=== PATIENT | female | born 1990 | race African-American/Black ===

== ENCOUNTER 2017-11-03 09:41 | Emergency (ER) | payer MEDICAID ==
[~2017-11-03] VITALS: Ht 162.6 cm; Wt 80.0 kg
[2017-11-03] MEDS ORDERED: METR500T PO (09:49)
[2017-11-03] MEDS ORDERED: DOXY150T PO (09:49)
[2017-11-03 10:43] LABS: BASOPHILS % 0.4 % (0.0-2.0); EOSINOPHILS % 0.7 % (0.0-5.0); HEMATOCRIT. 39.9 % (36.0-48.0); HEMOGLOBIN. 13.7 g/dL (12.0-16.0); LYMPHOCYTES % 20.5 % (20.0-50.0); MEAN CORPUSCULAR HEMOGLOBIN 30.2 pg (28.0-32.0); MEAN CORPUSCULAR VOLUME 87.9 fL (81.0-99.0); MEAN PLATELET VOLUME 7.7 fl (7.4-10.4); NEUTROPHILS % 73.4 % (40.0-76.0); PLATELET 314 x1000/uL (130-400); RED BLOOD CELL COUNT 4.54 mill/uL (4.2-5.4); RED CELL DISTRIBUTION WIDTH 13.9 % (11.6-14.6)
[2017-11-03 10:50] LABS: CHLORIDE 105 mEq/L (98-107)
[2017-11-03 10:54] LABS: ETHANOL BLOOD < 10 mg/dL
[2017-11-03 10:56] LABS: CLARITY URINE CLEAR (CLEAR); COLOR URINE YELLOW (YELLOW); KETONES URINE NEGATIVE (NEGATIVE); LEUKOCYTE ESTERASE URINE 3+ (NEGATIVE); NITRITE URINE NEGATIVE (NEGATIVE); OCCULT BLOOD URINE NEGATIVE (NEGATIVE); PROTEIN URINE NEGATIVE (NEGATIVE); SPECIFIC GRAVITY URINE 1.016 (1.005-1.030); UROBILINOGEN URINE 0.2 E.U./dL (0.2-1.0)
[2017-11-03 11:11] LABS: *AMPHETAMINES SCREEN URINE NEGATIVE (NEGATIVE); *BARBITURATES SCREEN URINE NEGATIVE (NEGATIVE); *BENZODIAZEPINES SCREEN URINE NEGATIVE (NEGATIVE); *COCAINE SCREEN URINE NEGATIVE (NEGATIVE); METHADONE URINE SCREEN NEGATIVE (NEGATIVE)
[2017-11-03 11:13] LABS: CANNABINOID URINE SCREEN NEGATIVE (NEGATIVE); OPIATES URINE SCREEN NEGATIVE (NEGATIVE); PHENCYCLIDINE URINE SCREEN NEGATIVE (NEGATIVE)
[2017-11-03] MEDS ORDERED: LEVETIRACETAM 1000MG/100ML 100 ML IV ONE (11:15)
[2017-11-03] MEDS ORDERED: KETOROLAC 30MG/ML VIAL IV ONE (12:00)
[2017-11-03 12:39] VITALS: BP 127/52
== END 2017-11-03 12:40 | disposition home or self-care (01) ==
LOC: ER 09:41
DX: G40.409 Other generalized epilepsy and epileptic syndromes, not intractable, without status epilepticus (principal); N39.0 Urinary tract infection, site not specified
CPT/HCPCS: 36415; 70450; 80053; 80305; 81003; 81025; 85025; 96365; 96375; 99285; G0482; J1885; J1953; Z7610

== ENCOUNTER 2018-02-15 06:28 | Emergency (ER) | payer MEDICAID ==
[~2018-02-15] VITALS: Ht 175.3 cm; Wt 82.0 kg
[~2018-02-15 06:28] MED LIST: DOXY150T PO; METR500T PO
[2018-02-15] MEDS ORDERED: KETOROLAC 30MG/ML VIAL IV STA (06:56)
[2018-02-15] MEDS ORDERED: LEVETIRACETAM 1000MG/100ML 100 ML IV ONE (07:00)
[2018-02-15] MEDS ORDERED: METOCLOPRAMIDE HCL 10MG/2ML VIAL IV ONE (07:00)
[2018-02-15 07:32] LABS: BASOPHILS % 0.4 % (0.0-2.0); EOSINOPHILS % 1.1 % (0.0-5.0); HEMATOCRIT. 40.2 % (36.0-48.0); HEMOGLOBIN. 13.7 g/dL (12.0-16.0); LYMPHOCYTES % 24.6 % (20.0-50.0); MEAN CORPUSCULAR HEMOGLOBIN 30.9 pg (28.0-32.0); MEAN CORPUSCULAR VOLUME 90.8 fL (81.0-99.0); MEAN PLATELET VOLUME 8.4 fl (7.4-10.4); MONOCYTES % 6.2 % (2.0-8.0); NEUTROPHILS % 67.7 % (40.0-76.0); PLATELET 325 x1000/uL (130-400); RED BLOOD CELL COUNT 4.43 mill/uL (4.2-5.4); RED CELL DISTRIBUTION WIDTH 12.7 % (11.6-14.6)
[2018-02-15 07:48] LABS: CHLORIDE 107 mEq/L (98-107)
[2018-02-15 09:05] VITALS: BP 97/52
== END 2018-02-15 09:19 | disposition home or self-care (01) ==
LOC: ER 06:46
DX: R56.9 Unspecified convulsions (principal); R53.1 Weakness; R51 Headache; Z79.899 Other long term (current) drug therapy
CPT/HCPCS: 36415; 80053; 81025; 85025; 96365; 96375; 99284; J1885; J1953; J2765

== ENCOUNTER 2018-10-07 06:09 | Emergency (ER) | payer MEDICAID ==
[~2018-10-07] VITALS: Ht 170.2 cm; Wt 100.0 kg
[2018-10-07] MEDS ORDERED: SODIUM CHLORIDE 0.9% 1,000 ML IV ONE (06:36)
[2018-10-07 07:22] LABS: CLARITY URINE CLEAR (CLEAR); COLOR URINE YELLOW (YELLOW); KETONES URINE NEGATIVE (NEGATIVE); LEUKOCYTE ESTERASE URINE NEGATIVE (NEGATIVE); NITRITE URINE NEGATIVE (NEGATIVE); OCCULT BLOOD URINE NEGATIVE (NEGATIVE); PH URINE 6.5 (4.5-8.0); PROTEIN URINE TRACE (NEGATIVE); SPECIFIC GRAVITY URINE 1.019 (1.005-1.030); UROBILINOGEN URINE 0.2 E.U./dL (0.2-1.0)
[2018-10-07 08:50] LABS: BASOPHILS % 0.3 % (0.0-2.0); EOSINOPHILS % 0.1 % (0.0-5.0); HEMATOCRIT. 38.6 % (36.0-48.0); HEMOGLOBIN. 13.1 g/dL (12.0-16.0); LYMPHOCYTES % 9.1 % (20.0-50.0); MEAN CORPUSCULAR HEMOGLOBIN 30.9 pg (28.0-32.0); MEAN PLATELET VOLUME 7.7 fl (7.4-10.4); MONOCYTES % 3.6 % (2.0-8.0); NEUTROPHILS % 86.9 % (40.0-76.0); PLATELET 313 x1000/uL (130-400); RED BLOOD CELL COUNT 4.24 mill/uL (4.2-5.4); RED CELL DISTRIBUTION WIDTH 13.2 % (11.6-14.6)
[2018-10-07 08:55] LABS: CHLORIDE 106 mEq/L (98-107)
[2018-10-07 09:27] LABS: B-HCG QUANTITATIVE 63726 mIU/mL (<3)
[2018-10-07 09:51] VITALS: BP 101/55
== END 2018-10-07 10:27 | disposition home or self-care (01) ==
LOC: ER 06:09
DX: O99.351 Diseases of the nervous system complicating pregnancy, first trimester (principal); G40.909 Epilepsy, unspecified, not intractable, without status epilepticus; Z79.899 Other long term (current) drug therapy; Z3A.01 Less than 8 weeks gestation of pregnancy
CPT/HCPCS: 36415; 76801; 76817; 80053; 81003; 81025; 84702; 85025; 99284; J7030; Z7610

== ENCOUNTER 2018-12-13 16:57 | Emergency (ER) | payer MEDICAID ==
[~2018-12-13] VITALS: Ht 157.5 cm; Wt 76.0 kg
[2018-12-13 18:44] LABS: CLARITY URINE CLOUDY (CLEAR); COLOR URINE YELLOW (YELLOW); KETONES URINE 2+ (NEGATIVE); LEUKOCYTE ESTERASE URINE 3+ (NEGATIVE); NITRITE URINE NEGATIVE (NEGATIVE); OCCULT BLOOD URINE NEGATIVE (NEGATIVE); PROTEIN URINE NEGATIVE (NEGATIVE); SPECIFIC GRAVITY URINE 1.013 (1.005-1.030); UROBILINOGEN URINE 0.2 E.U./dL (0.2-1.0)
[2018-12-13] MEDS ORDERED: NITROFURANTOIN 100MG M/M CAPSULE PO ONE (20:15)
[2018-12-13 21:17] VITALS: BP 110/75
== END 2018-12-13 21:18 | disposition home or self-care (01) ==
LOC: ER 16:57
DX: O26.891 Other specified pregnancy related conditions, first trimester (principal); O02.1 Missed abortion; O23.41 Unspecified infection of urinary tract in pregnancy, first trimester; Z3A.14 14 weeks gestation of pregnancy
CPT/HCPCS: 76805; 81025; 99284

== ENCOUNTER 2019-06-11 11:27 | Emergency (ER) | payer MEDICAID ==
[~2019-06-11] VITALS: Ht 170.2 cm; Wt 68.0 kg
[~2019-06-11 11:27] MED LIST changes: -DOXY150T PO; +DOXY150T5 PO
[2019-06-11] MEDS ORDERED: SODIUM CHLORIDE 0.9% 1,000 ML IV ONE (11:55)
[2019-06-11] MEDS: ACETAMINOPHEN 325MG TABLET PO PRN ×2 (12:15→13:45)
[2019-06-11] MEDS ORDERED: ONDANSETRON HCL 4MG/2ML INJ IV ONE (12:30)
[2019-06-11 12:41] LABS: BASOPHILS % 0.4 % (0.0-2.0); EOSINOPHILS % 0.2 % (0.0-5.0); HEMATOCRIT. 36.6 % (36.0-48.0); HEMOGLOBIN. 12.6 g/dL (12.0-16.0); LYMPHOCYTES % 16.4 % (20.0-50.0); MEAN CORPUSCULAR VOLUME 87.2 fL (81.0-99.0); MEAN PLATELET VOLUME 8.1 fl (7.4-10.4); MONOCYTES % 4.9 % (2.0-8.0); NEUTROPHILS % 78.1 % (40.0-76.0); PLATELET 293 x1000/uL (130-400); RED CELL DISTRIBUTION WIDTH 14.9 % (11.6-14.6)
[2019-06-11 12:51] LABS: CHLORIDE 106 mEq/L (98-107)
[2019-06-11 12:59] LABS: ETHANOL BLOOD < 10 mg/dL
[2019-06-11 13:09] LABS: CLARITY URINE CLEAR (CLEAR); COLOR URINE YELLOW (YELLOW); KETONES URINE NEGATIVE (NEGATIVE); LEUKOCYTE ESTERASE URINE NEGATIVE (NEGATIVE); NITRITE URINE NEGATIVE (NEGATIVE); OCCULT BLOOD URINE NEGATIVE (NEGATIVE); PH URINE 5.5 (4.5-8.0); PROTEIN URINE 1+ (NEGATIVE); SPECIFIC GRAVITY URINE 1.016 (1.005-1.030); UROBILINOGEN URINE 0.2 E.U./dL (0.2-1.0)
[2019-06-11 13:29] LABS: B-HCG QUANTITATIVE 15198 mIU/mL (<3)
[2019-06-11 13:44] LABS: *AMPHETAMINES SCREEN URINE NEGATIVE (NEGATIVE); *BARBITURATES SCREEN URINE NEGATIVE (NEGATIVE); *BENZODIAZEPINES SCREEN URINE NEGATIVE (NEGATIVE); *COCAINE SCREEN URINE NEGATIVE (NEGATIVE)
[2019-06-11 13:46] LABS: CANNABINOID URINE SCREEN NEGATIVE (NEGATIVE); METHADONE URINE SCREEN NEGATIVE (NEGATIVE); OPIATES URINE SCREEN NEGATIVE (NEGATIVE); PHENCYCLIDINE URINE SCREEN NEGATIVE (NEGATIVE)
[2019-06-11 15:43] VITALS: BP 130/71
== END 2019-06-11 15:50 | disposition home or self-care (01) ==
LOC: ER 11:56
DX: O26.892 Other specified pregnancy related conditions, second trimester (principal); G40.909 Epilepsy, unspecified, not intractable, without status epilepticus; O23.41 Unspecified infection of urinary tract in pregnancy, first trimester; Z3A.16 16 weeks gestation of pregnancy
CPT/HCPCS: 36415; 76805; 80053; 80305; 80320; 81003; 84702; 85025; 96374; 99284; J2405; J7030; G0480

== ENCOUNTER 2020-03-09 15:18 | Emergency (ER) | payer MEDICAID ==
[~2020-03-09] VITALS: Ht 167.6 cm; Wt 90.0 kg
[2020-03-09] MEDS ORDERED: SODIUM CHLORIDE 0.9% 1,000 ML IV ONE (15:45)
[2020-03-09] MEDS ORDERED: LEVETIRACETAM 500MG PREMIX 100 ML IV ONE ×2 (16:15)
[2020-03-09 17:04] LABS: BASOPHILS % 0.3 % (0.0-2.0); EOSINOPHILS % 1.1 % (0.0-5.0); HEMATOCRIT. 40.6 % (36.0-48.0); HEMOGLOBIN. 13.9 g/dL (12.0-16.0); LYMPHOCYTES % 22.5 % (20.0-50.0); MEAN CORPUSCULAR HEMOGLOBIN 30.4 pg (28.0-32.0); MEAN CORPUSCULAR VOLUME 88.7 fL (81.0-99.0); MEAN PLATELET VOLUME 7.8 fl (7.4-10.4); MONOCYTES % 5.1 % (2.0-8.0); PLATELET 327 x1000/uL (130-400); RED BLOOD CELL COUNT 4.58 mill/uL (4.2-5.4); RED CELL DISTRIBUTION WIDTH 13.1 % (11.6-14.6)
[2020-03-09 17:09] LABS: CHLORIDE 107 mEq/L (98-107)
[2020-03-09 17:14] LABS: ETHANOL BLOOD < 10 mg/dL
[2020-03-09 17:26] LABS: CARBAMAZEPINE < 0.5 ug/mL (4-12); VALPROIC ACID < 3.0 ug/mL (50-100)
[2020-03-09 17:32] LABS: HCG SCREEN NEGATIVE
[2020-03-09 18:27] VITALS: BP 127/69
[2020-03-09 19:20] LABS: CLARITY URINE CLEAR (CLEAR); COLOR URINE YELLOW (YELLOW); KETONES URINE NEGATIVE (NEGATIVE); LEUKOCYTE ESTERASE URINE TRACE (NEGATIVE); NITRITE URINE NEGATIVE (NEGATIVE); OCCULT BLOOD URINE NEGATIVE (NEGATIVE); PH URINE 7.5 (4.5-8.0); PROTEIN URINE NEGATIVE (NEGATIVE); SPECIFIC GRAVITY URINE 1.014 (1.005-1.030); UROBILINOGEN URINE 0.2 E.U./dL (0.2-1.0)
[2020-03-09 19:27] LABS: *AMPHETAMINES SCREEN URINE NEGATIVE (NEGATIVE); *BARBITURATES SCREEN URINE NEGATIVE (NEGATIVE); *BENZODIAZEPINES SCREEN URINE NEGATIVE (NEGATIVE); *COCAINE SCREEN URINE NEGATIVE (NEGATIVE); CANNABINOID URINE SCREEN NEGATIVE (NEGATIVE); METHADONE URINE SCREEN NEGATIVE (NEGATIVE); OPIATES URINE SCREEN NEGATIVE (NEGATIVE); PHENCYCLIDINE URINE SCREEN NEGATIVE (NEGATIVE)
== END 2020-03-09 19:53 | disposition home or self-care (01) ==
LOC: ER 15:27
DX: S09.8XXA Other specified injuries of head, initial encounter (principal); R56.9 Unspecified convulsions; W06.XXXA Fall from bed, initial encounter; Y93.89 Activity, other specified; Y92.89 Other specified places as the place of occurrence of the external cause; Y99.8 Other external cause status
CPT/HCPCS: 36415; 70450; 80053; 80156; 80165; 80305; 80320; 81003; 83605; 84484; 84703; 85025; 86850; 86900; 86901; 93005; 96365; 99285; J1953; J7030; G0480

== ENCOUNTER 2023-12-11 16:09 | Emergency (ER) | payer MEDICAID ==
[~2023-12-11] VITALS: Ht 165.1 cm; Wt 75.0 kg
[2023-12-11 16:17] VITALS: O2SAT 99
[2023-12-11 17:58] LABS: BASOPHILS % 0.3 % (0.0-2.0); EOSINOPHILS % 0.4 % (0.0-5.0); HEMOGLOBIN. 13.3 g/dL (12.0-16.0); LYMPHOCYTES % 10.9 % (20.0-50.0); MEAN CORPUSCULAR HEMOGLOBIN 30.6 pg (28.0-32.0); MEAN CORPUSCULAR HGB CONC 33.4 g/dL (31.0-37.0); MEAN CORPUSCULAR VOLUME 91.5 fL (81.0-99.0); MEAN PLATELET VOLUME 7.9 fl (7.4-10.4); MONOCYTES % 5.2 % (2.0-8.0); NEUTROPHILS % 83.2 % (40.0-76.0); PLATELET 354 x1000/uL (130-400); RED BLOOD CELL COUNT 4.37 mill/uL (4.2-5.4); RED CELL DISTRIBUTION WIDTH 13.1 % (11.6-14.6); WHITE BLOOD COUNT 12.7 x1000/uL (4.5-11.0)
[2023-12-11 18:03] LABS: CHLORIDE 105 mEq/L (98-107); POTASSIUM 4.4 mEq/L (3.5-5.1); SODIUM 136 mEq/L (136-145)
[2023-12-11 18:04] LABS: CALCIUM 9.3 mg/dL (8.7-10.4); CARBON DIOXIDE 25 mEq/L (21-32)
[2023-12-11 18:09] LABS: CREATININE 0.7 mg/dL (0.6-1.0); GLUCOSE 102 mg/dL (70-105); HCG SCREEN NEGATIVE; UREA NITROGEN BLOOD 6 mg/dL (9-23)
[2023-12-11 18:11] LABS: ALANINE AMINOTRANSFERASE 32 IU/L (10-49); ALBUMIN 4.5 g/dL (3.2-4.8); ASPARTATE AMINOTRANSFERASE 25 IU/L (<34); BILIRUBIN TOTAL 0.4 mg/dL (0.1-1.0)
[2023-12-11 18:12] LABS: PROTEIN TOTAL 7.3 g/dL (6.0-8.3)
[2023-12-11] MEDS: LEVETIRACETAM 500MG PREMIX 100 ML IV ONE (18:17)
[2023-12-11] MEDS: SODIUM CHLORIDE 0.9% 1,000 ML IV ONE (18:18)
[2023-12-11 18:27] VITALS: TEMP 98.2
[2023-12-11] MEDS ORDERED: KEPP500 MT (20:53)
[2023-12-11 21:50] VITALS: BP 126/86; PULSE 68; RESP 12
== END 2023-12-11 21:52 | disposition home or self-care (01) ==
LOC: ER 16:09
DX: G40.909 Epilepsy, unspecified, not intractable, without status epilepticus (principal); J45.909 Unspecified asthma, uncomplicated
CPT/HCPCS: 99284; 96365; 80053; 84703; 85025; 36415; 93005; J1953; J7030

== ENCOUNTER 2024-06-04 19:12 | Emergency (ER) | payer MEDICAID ==
[~2024-06-04] VITALS: Ht 167.6 cm; Wt 127.0 kg
[~2024-06-04 19:12] MED LIST changes: -DOXY150T5 PO; +DOXY150T8 PO; +KEPP500 MT
[2024-06-04 19:22] VITALS: TEMP 98.2; O2SAT 99
[2024-06-04] MEDS ORDERED: LEVETIRACETAM 500MG PREMIX 100 ML IV ONE (20:30)
[2024-06-04] MEDS: KETOROLAC 15MG/ML VIAL IV ONE (21:04)
[2024-06-04] MEDS: LEVETIRACETAM 500MG PREMIX 100 ML IV ONE (21:04)
[2024-06-04] MEDS: ONDANSETRON HCL 4MG/2ML INJ IV STA (21:04)
[2024-06-04] MEDS: SODIUM CHLORIDE 0.9% 1,000 ML IV ONE (21:04)
[2024-06-04 22:19] LABS: HEMATOCRIT. 37.6 % (36.0-48.0); MEAN CORPUSCULAR HGB CONC 34.4 g/dL (31.0-37.0); MEAN CORPUSCULAR VOLUME 90.1 fL (81.0-99.0); MEAN PLATELET VOLUME 7.7 fl (7.4-10.4); PLATELET 353 x1000/uL (130-400); RED BLOOD CELL COUNT 4.17 mill/uL (4.2-5.4); RED CELL DISTRIBUTION WIDTH 13.6 % (11.6-14.6); WHITE BLOOD COUNT 11.5 x1000/uL (4.5-11.0)
[2024-06-04 22:23] LABS: DIFFERENTIAL COMMENT 1
[2024-06-04 22:30] LABS: CHLORIDE 106 mEq/L (98-107); POTASSIUM 3.7 mEq/L (3.5-5.1); SODIUM 137 mEq/L (136-145)
[2024-06-04 22:31] LABS: CALCIUM 9.1 mg/dL (8.7-10.4); CARBON DIOXIDE 22 mEq/L (21-32)
[2024-06-04 22:33] LABS: HCG SCREEN NEGATIVE
[2024-06-04 22:36] LABS: CREATININE 0.8 mg/dL (0.6-1.0); GLUCOSE 112 mg/dL (70-105); UREA NITROGEN BLOOD 10 mg/dL (9-23)
[2024-06-04 22:43] LABS: PLATELET ESTIMATE NORMAL
[2024-06-04] MEDS ORDERED: LEVE1000 MT (22:48)
[2024-06-04] MEDS ORDERED: ACETAMINOPHEN 325MG TABLET PO ONE (23:15)
[2024-06-04 23:20] VITALS: BP 121/35; PULSE 85; RESP 13; O2SAT 95
== END 2024-06-04 23:25 | disposition home or self-care (01) ==
LOC: ER 19:12
DX: R56.9 Unspecified convulsions (principal); R51.9 Headache, unspecified; Z91.148 Patient's other noncompliance with medication regimen for other reason
CPT/HCPCS: 80048; 84703; 85025; 36415; 93005; 96365; 96366; 96375; 99285; J1953; J1885; J2405; J7030; Z7610; A4606

== ENCOUNTER 2024-06-06 14:31 | Emergency (ER) | payer MEDICAID ==
[~2024-06-06] VITALS: Ht 157.5 cm; Wt 90.0 kg
[~2024-06-06 14:31] MED LIST changes: +LEVE1000 MT
[2024-06-06 14:37] VITALS: O2SAT 99
[2024-06-06 15:41] VITALS: TEMP 98.4; O2SAT 100
[2024-06-06 16:04] LABS: CLARITY URINE CLEAR (CLEAR); COLOR URINE YELLOW (YELLOW); GLUCOSE URINE NEGATIVE (NEGATIVE); KETONES URINE 1+ (NEGATIVE); LEUKOCYTE ESTERASE URINE NEGATIVE (NEGATIVE); NITRITE URINE NEGATIVE (NEGATIVE); OCCULT BLOOD URINE NEGATIVE (NEGATIVE); PROTEIN URINE TRACE (NEGATIVE); SPECIFIC GRAVITY URINE 1.027 (1.005-1.030)
[2024-06-06 17:13] LABS: BACTERIA URINE 1+; RBC URINE 0-2 /hpf (0-2); SQUAMOUS EPITHELIAL CELL URINE 1+ /lpf (RARE/1+)
[2024-06-06 20:09] VITALS: BP 127/65; PULSE 98; RESP 14
[2024-06-06] MEDS: HYDROCODONE/ACETAMINOPHEN 5/325MG TABLET PO ONE (20:09)
== END 2024-06-06 21:30 | disposition left against medical advice (07) ==
LOC: ER 14:31
DX: S01.512A Laceration without foreign body of oral cavity, initial encounter (principal); S05.10XA Contusion of eyeball and orbital tissues, unspecified eye, initial encounter; S09.90XA Unspecified injury of head, initial encounter; G89.11 Acute pain due to trauma; Y08.89XA Assault by other specified means, initial encounter; Y93.89 Activity, other specified; Y92.89 Other specified places as the place of occurrence of the external cause; Y99.8 Other external cause status
CPT/HCPCS: 81003; 81025; 99283

== ENCOUNTER 2024-08-11 16:22 | Emergency (ER) | payer MEDICAID ==
[~2024-08-11] VITALS: Ht 165.1 cm; Wt 90.0 kg
[2024-08-11 16:23] VITALS: O2SAT 100
[2024-08-11] MEDS: HYDROCODONE/ACETAMINOPHEN 5/325MG TABLET PO STA (17:39)
[2024-08-11] MEDS: LIDOCAINE HCL 1% 20ML VIAL INFIL ONE (17:45)
[2024-08-11] MEDS: TETANUS, DIPHTHERIA, PERTUSSIS VAC/PF 0.5ML (>10YR OLD) IM ONE (17:45)
[2024-08-11] MEDS: LIDOCAINE HCL 1% 20ML VIAL INFIL NR (20:49)
[2024-08-11] MEDS ORDERED: ACET-2708 MT (21:09)
[2024-08-11 21:42] VITALS: BP 125/74; PULSE 69; RESP 18; TEMP 36.8; O2SAT 99
== END 2024-08-11 21:43 | disposition home or self-care (01) ==
LOC: ER 16:22
DX: S91.311A Laceration without foreign body, right foot, initial encounter (principal); S09.8XXA Other specified injuries of head, initial encounter; X58.XXXA Exposure to other specified factors, initial encounter; Y93.89 Activity, other specified; Y92.89 Other specified places as the place of occurrence of the external cause; Y99.8 Other external cause status
CPT/HCPCS: 99285; 70450; 73630; 70486; 72125; 90715; 12001; 90471; J3490

== ENCOUNTER 2024-08-20 10:43 | Emergency (ER) | payer MEDICAID ==
[~2024-08-20] VITALS: Ht 157.5 cm; Wt 91.0 kg
[~2024-08-20 10:43] MED LIST changes: +ACET-2708 MT
[2024-08-20 10:48] VITALS: O2SAT 99
[2024-08-20 11:02] VITALS: BP 132/85; PULSE 86; RESP 14; TEMP 36.7; O2SAT 98
== END 2024-08-20 14:02 | disposition home or self-care (01) ==
LOC: ER 10:43
DX: S91.311D Laceration without foreign body, right foot, subsequent encounter (principal); X58.XXXD Exposure to other specified factors, subsequent encounter
CPT/HCPCS: 99281

== ENCOUNTER 2025-01-12 09:22 | Emergency (ER) | payer MEDICAID, MEDICARE ==
[~2025-01-12] VITALS: Ht 167.6 cm; Wt 94.0 kg
[2025-01-12 09:25] VITALS: TEMP 36.8; O2SAT 96
[2025-01-12] MEDS: LEVETIRACETAM 1000MG PREMIX 100 ML IV ONE (09:49)
[2025-01-12 09:51] LABS: BASOPHILS % 0.6 % (0.0-2.0); EOSINOPHILS % 2.0 % (0.0-5.0); HEMATOCRIT. 41.3 % (36.0-48.0); HEMOGLOBIN. 13.8 g/dL (12.0-16.0); LYMPHOCYTES % 26.3 % (20.0-50.0); MEAN PLATELET VOLUME 8.2 fl (7.4-10.4); MONOCYTES % 5.3 % (2.0-8.0); NEUTROPHILS % 65.8 % (40.0-76.0); PLATELET 334 x1000/uL (130-400); RED BLOOD CELL COUNT 4.56 mill/uL (4.2-5.4); RED CELL DISTRIBUTION WIDTH 13.8 % (11.6-14.6)
[2025-01-12 10:05] LABS: CREATININE 0.8 mg/dL (0.6-1.0)
[2025-01-12 10:06] LABS: UREA NITROGEN BLOOD 8 mg/dL (9-23)
[2025-01-12 11:25] LABS: ETHANOL BLOOD < 10 mg/dL (<10)
[2025-01-12 11:51] LABS: CLARITY URINE CLEAR (CLEAR); COLOR URINE YELLOW (YELLOW); GLUCOSE URINE NEGATIVE (NEGATIVE); KETONES URINE TRACE (NEGATIVE); LEUKOCYTE ESTERASE URINE NEGATIVE (NEGATIVE); NITRITE URINE NEGATIVE (NEGATIVE); OCCULT BLOOD URINE 3+ (NEGATIVE); PH URINE 5.5 (4.5-8.0); PROTEIN URINE 1+ (NEGATIVE); SPECIFIC GRAVITY URINE 1.020 (1.005-1.030); UROBILINOGEN URINE 0.2 E.U./dL (0.2-1.0)
[2025-01-12 12:13] LABS: *AMPHETAMINES SCREEN URINE NEGATIVE (NEGATIVE); *BARBITURATES SCREEN URINE NEGATIVE (NEGATIVE); *BENZODIAZEPINES SCREEN URINE NEGATIVE (NEGATIVE); *COCAINE SCREEN URINE NEGATIVE (NEGATIVE); METHADONE URINE SCREEN NEGATIVE (NEGATIVE); OPIATES URINE SCREEN NEGATIVE (NEGATIVE)
[2025-01-12 12:14] LABS: CANNABINOID URINE SCREEN NEGATIVE (NEGATIVE); ECSTASY MDMA SCREEN URINE NEGATIVE (NEGATIVE); PHENCYCLIDINE URINE SCREEN NEGATIVE (NEGATIVE)
[2025-01-12 12:25] LABS: SQUAMOUS EPITHELIAL CELL URINE FEW /lpf (RARE/1+)
[2025-01-12 12:26] LABS: BACTERIA URINE TRACE; RBC URINE 50-100 /hpf (0-2)
[2025-01-12 12:27] LABS: WBC URINE 0-2 /hpf (0-2)
[2025-01-12 12:46] VITALS: BP 106/67; PULSE 81; RESP 12; O2SAT 98
== END 2025-01-12 12:48 | disposition home or self-care (01) ==
LOC: ER 10:13
DX: R56.9 Unspecified convulsions (principal); Z79.899 Other long term (current) drug therapy
CPT/HCPCS: 80305; 80048; 81003; 80320; 85025; 36415; 93005; 96365; 99284; J1953; G0480